=== PATIENT | male | born 1960 | race Caucasian/White ===

== ENCOUNTER 2017-04-07 07:54 | Day surgery (SDC) | payer OTHER ==
[~2017-04-07] VITALS: Ht 175.3 cm; Wt 78.0 kg
[~2017-04-07 07:54] MED LIST: ADVAIR 500/501 DISK IH; ALBUTEROL17 GM IH; DEXILANT60 MG PO; DOLOPHINE HCL10 MG PO; DOLOPHINE HCL5 MG PO; DULERA 200 MCG/13 GM IH; Dexilant,Kapidex PO; FLONASE16 G1 BOTH NARES; HYDROCHLOROTHIA25 MG PO; KEFLEX500 MG PO; LO-DOSE ASPIRIN81 M1 PO; MEDROL DOSEPAK4 MG PO; METHADONE5 MG PO; METHadone HCl PO; MOTRIN600 MG PO; MUCUS RELIEF600 MG PO; NAPROSYN500 MG PO; NEURONTIN400 MG PO; NEURONTIN600 MG PO; NITROSTAT0.4 MG SL; Neurontin PO; Nitrostat,NitroQuick SL; PAXIL30 MG PO; PERCOCET 10/1 TABLET PO; PERCOCET 7.51 TABLET PO; PREDNISONE10 MG PO; PROVENTIL,2.5 MG/3 M IH; RISPERDAL1 MG PO; ROBITUSSIN NIG118 ML PO; TESSALON PERLE100 MG PO; ULTRAM50 MG PO; VALACYCLOVIR500 MG PO; VENTOLIN HFA18 GM IH; VENTOLIN17 GM IH; XANAX XR0.5 MG PO; XANAX XR3 MG PO; ZANTAC300 MG PO; ZOCOR20 MG PO
== END 2017-04-07 09:50 | disposition home or self-care (01) ==
LOC: PAIN 07:54 → SDC 08:30 → PAIN 09:50
DX: M47.26 Other spondylosis with radiculopathy, lumbar region (principal); M51.16 Intervertebral disc disorders with radiculopathy, lumbar region; M62.830 Muscle spasm of back; I10 Essential (primary) hypertension; J44.9 Chronic obstructive pulmonary disease, unspecified; I25.2 Old myocardial infarction; K21.9 Gastro-esophageal reflux disease without esophagitis; Z86.73 Personal history of transient ischemic attack (TIA), and cerebral infarction without residual deficits; Z87.891 Personal history of nicotine dependence; Z88.0 Allergy status to penicillin
CPT/HCPCS: J1030; J2250; J3010; S0020

== ENCOUNTER 2017-04-14 07:58 | Day surgery (SDC) | payer OTHER ==
[~2017-04-14] VITALS: Ht 175.3 cm; Wt 78.0 kg
== END 2017-04-14 09:27 | disposition home or self-care (01) ==
LOC: PAIN 07:58 → SDC 08:30 → PAIN 09:27
DX: M47.26 Other spondylosis with radiculopathy, lumbar region (principal); M51.16 Intervertebral disc disorders with radiculopathy, lumbar region; I10 Essential (primary) hypertension; I25.10 Atherosclerotic heart disease of native coronary artery without angina pectoris; M62.830 Muscle spasm of back; J44.9 Chronic obstructive pulmonary disease, unspecified; K21.9 Gastro-esophageal reflux disease without esophagitis; Z88.0 Allergy status to penicillin; I25.2 Old myocardial infarction; F17.210 Nicotine dependence, cigarettes, uncomplicated; Z79.891 Long term (current) use of opiate analgesic; Z86.73 Personal history of transient ischemic attack (TIA), and cerebral infarction without residual deficits
CPT/HCPCS: J1030; J2250; J3010; S0020

== ENCOUNTER 2018-01-30 17:08 | Emergency (ER) | payer OTHER ==
[~2018-01-30] VITALS: Ht 175.3 cm; Wt 74.4 kg
[2018-01-30] MEDS ORDERED: BACTRIM,SEPT1 TABLET PO (19:29)
[2018-01-30 20:04] VITALS: BP 154/86
== END 2018-01-30 20:05 | disposition home or self-care (01) ==
LOC: EME 17:08
DX: S83.92XA Sprain of unspecified site of left knee, initial encounter (principal); L03.211 Cellulitis of face; T63.441A Toxic effect of venom of bees, accidental (unintentional), initial encounter; W01.0XXA Fall on same level from slipping, tripping and stumbling without subsequent striking against object, initial encounter; X50.1XXA Overexertion from prolonged static or awkward postures, initial encounter; Z88.0 Allergy status to penicillin; Z88.1 Allergy status to other antibiotic agents; J45.909 Unspecified asthma, uncomplicated; G89.29 Other chronic pain; Z79.891 Long term (current) use of opiate analgesic; Z79.82 Long term (current) use of aspirin; F17.200 Nicotine dependence, unspecified, uncomplicated
CPT/HCPCS: 73564; 99281; 99284

== ENCOUNTER 2018-04-06 15:00 | Emergency (ER) | payer OTHER ==
[~2018-04-06] VITALS: Ht 175.3 cm; Wt 73.9 kg
[~2018-04-06 15:00] MED LIST changes: +BACTRIM,SEPT1 TABLET PO
[2018-04-06 16:15] LABS: APPEARANCE CLEAR ((CLEAR)); BILIRUBIN NEGATIVE; BLOOD SMALL; COLOR COLORLESS ((YELLOW)); GLUCOSE (STRIP) NEGATIVE; KETONES NEGATIVE; LEUKOCYTES NEGATIVE; NITRITE NEGATIVE; PROTEIN (STRIP) NEGATIVE; SPECIFIC GRAVITY 1.003 (1.000-1.030); UROBILINOGEN 0.2 MG/DL (0.2-1.0)
[2018-04-06 16:17] LABS: BACTERIA NONE SEEN /HPF; EPITHELIAL CELLS NONE SEEN /HPF; MUCUS TRACE /LPF; RED BLOOD CELLS NONE SEEN /HPF (0-5); UCUL ADDED? NO; WHITE BLOOD CELLS 0-5 /HPF (0-5)
[2018-04-06 16:49] LABS: HEMATOCRIT 43.1 % (38.0-50.0); HEMOGLOBIN 15.3 G/DL (12.5-16.6); MCH 29.5 PG (29.0-34.0); MCHC 35.5 G/DL (30.0-36.0); MCV 83.2 FL (86-99); PLATELET COUNT 247 K/uL (156-360); RBC DIS.WIDTH-CV 12.6 % (11.8-14.6); RBC DIS.WIDTH-SD 38.3 % (39-53); RED BLOOD COUNT 5.18 M/uL (4.00-5.50); WHITE BLOOD COUNT 12.5 K/uL (4.1-10.2)
[2018-04-06 16:59] LABS: CHLORIDE 104 mEq/L (99-109); POTASSIUM 4.5 mEq/L (3.7-5.4); SODIUM 139 mEq/L (136-147)
[2018-04-06 17:01] LABS: GLUCOSE 93 mg/dL (70-99)
[2018-04-06 17:05] LABS: CREATININE 0.8 mg/dL (0.6-1.3); GFR ESTIMATE (CALCULATED) > 59 mL/min/ (58.99-99999)
[2018-04-06 17:06] LABS: UREA NITROGEN (BUN) 6 mg/dL (9-23)
[2018-04-06] MEDS ORDERED: BACLOFEN10 MG PO (18:40)
[2018-04-06] MEDS ORDERED: VOLTAREN 1% GE100 GM TP (18:40)
[2018-04-06] MEDS ORDERED: MOTRIN800 MG PO (18:40)
[2018-04-06] MEDS ORDERED: LIDODERM 5% P1 PATCH TD (18:40)
[2018-04-06 18:50] VITALS: BP 184/87
== END 2018-04-06 18:55 | disposition home or self-care (01) ==
LOC: EME 15:00
PROVIDERS: Nurse Practitioner Family
DX: M54.31 Sciatica, right side (principal); R31.9 Hematuria, unspecified; K57.30 Diverticulosis of large intestine without perforation or abscess without bleeding; G89.29 Other chronic pain; M54.9 Dorsalgia, unspecified; F32.9 Major depressive disorder, single episode, unspecified; F31.9 Bipolar disorder, unspecified; I25.2 Old myocardial infarction; F17.200 Nicotine dependence, unspecified, uncomplicated; Z79.82 Long term (current) use of aspirin; Z86.73 Personal history of transient ischemic attack (TIA), and cerebral infarction without residual deficits; Z88.5 Allergy status to narcotic agent; Z88.1 Allergy status to other antibiotic agents; Z88.0 Allergy status to penicillin
CPT/HCPCS: 74176; 80048; 81003; 85027; 99281; 99284; J1885